=== PATIENT | female | born 1975 | race Two or more races ===

== ENCOUNTER 2017-06-23 14:01 | Emergency (ER) | payer OTHER ==
[~2017-06-23] VITALS: Ht 160 cm
[~2017-06-23 14:01] MED LIST: AVALIDE 150-12.1 TA1; FARXIGA; HYDRALAZINE HCL10 MG; METFORMIN HYDRO25 GM; TOPROL XL25 M1
== END 2017-06-23 20:00 | disposition home or self-care (01) ==
LOC: EMR PED 14:01 → ER 14:03
DX: I47.1 Supraventricular tachycardia (principal); N39.0 Urinary tract infection, site not specified